=== PATIENT | male | born 1955 | race Caucasian/White ===

== ENCOUNTER 2022-11-18 08:00 | Outpatient (CLI) | payer MEDICARE, SELFPAY ==
--- NOTE | 2022-11-18 08:30 | ECG_ITS ---
Measurements Intervals [place] Rate: 62 P: 40 [place]: 147 QRS: 48 QRSD: 77 T: 42 QT: 398 QTc: 405 Interpretive Statements SINUS RHYTHM NO PREVIOUS ECG AVAILABLE FOR COMPARISON Electronically Signed On 11-18-2022 11:46:25 CDT by Patrick Dykes M.D.
[2022-11-18 09:09] LABS: Anion Gap 5 mmol/L (8-16); Blood Urea Nitrogen 18 mg/dL (9-20); Calcium 8.9 mg/dL (8.4-10.2); Carbon Dioxide 29 mmol/L (22-30); Chloride 105 mmol/L (98-107); Estimated Glomerular Filt Rate > 60; Glucose 122 mg/dL (65-110); Potassium 3.5 mmol/L (3.4-5.0); Sodium 139 mmol/L (137-145)
== END 2022-11-18 08:01 | disposition home or self-care (01) ==
PROVIDERS: Anesthesiology; PCP Family Medicine; Visit Provider Orthopaedic Surgery
DX: Z01.818 Encounter for other preprocedural examination (principal); I10 Essential (primary) hypertension
CPT/HCPCS: 36415; 80048; 93005

== ENCOUNTER 2022-11-22 00:39 | Day surgery (SDC) | payer MEDICARE, SELFPAY ==
[2022-11-15 13:31] VITALS: BMI 34.7
--- NOTE | 2022-11-15 14:37 | PC.NURSE ---
Report to the Outpatient Waiting Room, entrance under the green pavilion located off [facility], at time __0800 on date __11/22/22 . Planned Procedure Time: _1000 . Time changes happen often and if your time is changed the preop area will call you the afternoon before. - You and your visitor will be asked to self-screen and do not enter if you have any COVID symptoms. - A mask is optional within the hospital at this time. Patients may have clear liquids (water, carbonated beverages, clear teas, apple juice) until 3 hours prior to surgery with a maximum of 20 ounces. - No food from midnight until time of surgery - Infants may have breast milk until 4 hours before surgery, formula 6 hours prior to surgery. - Children will be allowed to drink immediately following surgery. If applicable, please bring a bottle or sippy cup to assist with drinking. Juice, water, soda, and popsicles are readily available. For infants on formula, please bring formula the day of surgery. Pacifiers are allowed. Take the following medications with a SIP of water the morning of surgery: ____METOPROLOL DO NOT STOP ANY OF YOUR OTHER PRESCRIPTION MEDICATIONS PRIOR TO SURGERY ?EXCEPT THE FOLLOWING Medications to discontinue per physician ___NONE Date to take last dose Please no make-up, nail american, hairspray, perfume, deodorant, or body powder the day of surgery. No jewelry (including any body piercings) or valuables the day of surgery, leave them at home. Please take a shower or bath the night before, or the morning of, surgery with an antibacterial soap. Wear comfortable, loose fitting clothing. Children are encouraged to wear pajamas. - Jewelry must be removed prior to entering the operating room. Rings and piercings that are not removed may be cut off. - The hospital will not accept responsibility for valuables. - Please leave all valuables, including medications, at home the day of surgery. If you are going home after surgery, a licensed driver lifter of sanitation truck must drive you home. - NO public transportation without another adult if you receive anesthesia. - We recommend that an adult stay with you for 24 hours following discharge. - We also recommend that you do not drive, make important decision, drink alcoholic beverages, or take any drugs that were not prescribed by your health care provider for at least 24 hours after your discharge time. For Pediatric surgeries, we recommend two adults accompany the child home. Follow any additional instructions given to you from your surgeon. If you or anyone in your household have experienced Covid symptoms in the past week, please notify your surgeon or the nurse liaison at the phone number below for possible testing. Telephone instructions given to __PATIENT and asked if any additional questions and then verbalized understanding. Patient advised to call surgeon office or pre surgery nurse liaison [phone] if any additional questions.
[2022-11-22] VITALS (7 sets, daily range): BP systolic 100–149; BP diastolic 63–97; PULSE 64–77; RESP 16–18; TEMP 36.3–36.5; O2SAT 93–98
--- NOTE | 2022-11-22 07:43 | WPDANESEPPF ---
Anes - Initial Pre Proc Eval Procedure: Operation Date: 11/22/22 11:30 Proposed Procedures p Right Olecranon Bursectomy - Lake Daily MD Date/Time: 11/22/22 07:43 Surgeon: Lake Daily MD Pre Op Diagnosis: Right Olecranon Bursitis Patient Data Age: 67 Gender: M Height: 1.75 m Weight: 106.65 kg Allergies Allergy/AdvReac Type Severity Reaction Status Date / Time No Known Allergies Allergy Verified 11/22/22 09:41 Home Medications Medication Instructions Recorded Confirmed Type atorvastatin 40 mg tablet 40 mg PO DAILY 10/19/22 11/18/22 History lisinopril 20 1 tablet PO DAILY 10/19/22 11/18/22 History mg-hydrochlorothiazide 25 mg tablet metoprolol tartrate 25 mg tablet 25 mg PO DAILY 11/15/22 11/18/22 History Patient hx anesthesia problems: none Family hx anesthesia problems: none Results Review: All pre-operative results and documents have been reviewed as part of the pre-operative evaluation. [facility] Past Medical History Medical History (Updated 11/22/22 @ 07:43 by Matias Santos DO) Hyperlipidemia Hypertension Olecranon bursitis, right elbow Osteoarthritis of left knee Surgical History Surgical History History of left knee surgery torn meniscus History of lithotripsy History of nasal surgery nasal fx Olecranon bursitis, left elbow Wells - bursectomy with spur removal. Had delayed triceps rupture. Family History Family History Father Hypertension Cerebrovascular accident Social History Social History Smoking status: Never smoker Alcohol intake: never Substance use: never Lack of Transportation: No Lack of Food: Never True Current Housing: I Have Housing Concerned About Future Housing: No Difficulty Paying Gas/Electric Bills: No Difficulty Paying for Meds: No Currently Unemployed: No Education: Associate Degree Difficulty w/ Childcare or Family Care: No Living arrangements: with family Occupation/Education: retired Spiritual care concerns: No Anes - Eval Final PreProcedure Day of Procedure 07/03/23 07:43 Patient weight: obese Heart: regular rate and rhythm Lungs: clear to auscultation Airway: Mallampati scale class II Neurological: alert and oriented Last oral intake: >/= 8 hours ASA classification: III Emergent: no Anesthetic plan: proceed Anesthesia type and monitoring: general LMA and standard monitoring Results Review: All pre-operative results and documents have been reviewed as part of the pre-operative evaluation. Informed Consent: The patient's anesthetic plan and its attendant risks and benefits were discussed with the patient/family/POA. Questions were solicited and answers provided to the satisfaction of the patient/family/POA.
[2022-11-22] MEDS: ACETAMINOPHEN 500 MG TABLET 1000 MG PO (09:42)
[2022-11-22] MEDS: KETOROLAC 15 MG/ML VIAL (*BKC) IV PUSH (10:06)
--- NOTE | 2022-11-22 10:17 | WPDHPUPDATE1 ---
History and Physical Update Update Date/Time: 11/22/22 10:17 History and Physical has been reviewed, including an updated exam of the patient. There are NO changes in the patient's condition. Risks, benefits, and alternatives have been discussed and questions answered. Patient agrees to proceed with procedure.
[2022-11-22] MEDS: ceFAZolin 2 GM/D5W 50 ML 2 GM/50 ML BAG IVPB (10:24)
[2022-11-22] MEDS: BUPIVACAINE/EPINEPHRINE 0.25% 50 ML VIAL 30 ML INFILTRATE (11:05)
[2022-11-22] MEDS: LACTATED RINGERS 1,000 ML 30 ML IV CONT (11:49)
--- NOTE | 2022-11-22 11:55 | P.OP_ITS ---
Procedure Note - Detailed Date of Procedure 11/22/22 Pre-op Diagnosis chronic Right Olecranon Bursitis Post-op Diagnosis Same Procedure Performed right olecranon bursectomy Surgeon Lake Daily MD Hard Tile Setter Apprentice Sonny Fox Anesthesia General Description of Procedure The patient was identified and proper site identified. He was taken to the operating room and transferred to the OR table. After general anesthetic induction and intubation he was put into the left lateral decubitus position taking care to properly pad and position his torso and extremities. Right upper extremity nonsterile her a placed high and the arm. Was then prepped and draped in usual sterile fashion. The extremity was exsanguinated and tourniquet was inflated to 300 millimeters of mercury remaining up for about 45 minutes. An elliptical incision was made over the olecranon bursa to remove some of the redundant skin. The bursa was carefully dissected free and off of the tip of the olecranon. There is abundance of chalky white material that looked like gout crystals in the soft tissues surrounding the bursa as well as along the olecranon spur. The spur was cleared of debris but was not removed. The wound was irrigated with a copious amount of sterile saline. Skin edges reapproximated first with 3-0 Monocryl then with two 0 V lock subcuticular stitch and 3-0 nylon horizontal mattress sutures. Sterile dressing was applied and the tourniquet was released. He tolerated the procedure well. He was awakened, extubated and taken recovery in stable condition. There were no known intraoperative complications. Estimated blood loss 5 milliliters. He received perioperative antibiotics. Estimated Blood Loss 5 Tourniquet Time 45 Drains No Packing No Pathology Yes ( Right olecranon bursa) Complications No immediate complications Condition Stable Disposition PACU [facility] Billing Surgery - Charge Forward: Surgery Billing ([id number])
== END 2022-11-22 13:30 | disposition home or self-care (01) ==
PROVIDERS: PCP Family Medicine; Visit Provider Orthopaedic Surgery
PROC: (CPT 24110; principal; 2022-11-22 11:30)
DX: M70.21 Olecranon bursitis, right elbow (principal); I10 Essential (primary) hypertension; E78.5 Hyperlipidemia, unspecified; E66.9 Obesity, unspecified; Z68.36 Body mass index [BMI] 36.0-36.9, adult
CPT/HCPCS: 24105; 88304; A4565; A9270; J0330; J0690; J1100; J1885; J2250; J2371; J2405; J2704; J3010; J7120

== ENCOUNTER 2023-03-15 07:54 | Outpatient (CLI) | payer MEDICARE, SELFPAY ==
[2023-03-15 08:55] LABS: Basophils Percent Auto 0.7 % (0.2-1.2); Eosinophils Absolute Auto 0.2 K/mm3 (0-0.3); Eosinophils Percent Auto 3.2 % (0-4.4); Hematocrit 46.2 % (42.0-52.0); Hemoglobin 15.5 g/dL (14.0-18.0); Immature Granulocyte Absolute 0.02 K/mm3 (0.00-0.031); Immature Granulocyte Percent A 0.4 % (0-0.5); Lymphocytes Absolute Auto 1.33 K/mm3 (0.9-3.2); Lymphocytes Percent Auto 24.8 % (18.3-44.2); Mean Corpuscular HGB Conc 33.5 g/dl (32-36); Mean Corpuscular Hemoglobin 31.4 pg (26-34); Mean Corpuscular Volume 93.7 fl (80-100); Mean Platelet Volume 8.5 fl (7.4-10.4); Monocytes Absolute Auto 0.4 K/mm3 (0.1-0.6); Monocytes Percent Auto 7.6 % (2.6-8.5); Neutrophils Absolute Auto 3.4 K/mm3 (1.3-6.7); Neutrophils Percent Auto 63.3 % (45.5-73.1); Platelet Count Result 231 k/mm3 (150-375); Red Blood Count 4.93 M/mm3 (4.6-6.20); Red Cell Distribution Width 15.3 % (11.5-14.5); White Blood Count 5.4 K/mm3 (4.5-10.0)
[2023-03-15 09:08] LABS: Albumin Level 4.4 g/dL (3.5-5.1)
[2023-03-15 09:12] LABS: Anion Gap 6 mmol/L (8-16); Blood Urea Nitrogen 20 mg/dL (9-20); Calcium 9.4 mg/dL (8.4-10.2); Carbon Dioxide 31 mmol/L (22-30); Chloride 102 mmol/L (98-107); Estimated Glomerular Filt Rate > 60; Glucose 127 mg/dL (65-110); Potassium 3.5 mmol/L (3.4-5.0); Sodium 139 mmol/L (137-145)
[2023-03-15 09:41] LABS: Urine Cotinine NEGATIVE
[2023-03-15 10:13] LABS: Hemoglobin A1C 5.5 % (<5.7)
== END 2023-03-15 07:55 | disposition home or self-care (01) ==
LOC: ANHSURGERY 07:57
PROVIDERS: Anesthesiology; PCP Family Medicine; Visit Provider Orthopaedic Surgery
DX: Z01.818 Encounter for other preprocedural examination (principal); M17.12 Unilateral primary osteoarthritis, left knee; Z79.899 Other long term (current) drug therapy
CPT/HCPCS: 36415; 80048; 80307; 82040; 83036; 85025; 87081

== ENCOUNTER 2023-04-04 01:30 | Day surgery (SDC) | payer MEDICARE, SELFPAY ==
--- NOTE | 2023-03-15 07:40 | PC.NURSE ---
PRE-OP INSTRUCTIONS, PLEASE READ CAREFULLY Report to the Outpatient Waiting Room, entrance under the green pavilion located off [facility], at time _0600_ on date _04/04/23_. Planned Procedure Time: _0730_. PACK A SMALL OVERNIGHT BAG AND LEAVE IN THE CAR ALONG WITH YOUR WALKER Time changes happen often and if your time is changed the preop area will call you the afternoon before. - You and your visitor will be asked to self-screen and do not enter if you have any COVID symptoms. - A mask is optional within the hospital at this time. -VISITING HOURS 8AM-8PM Patients may have clear liquids (water, carbonated beverages, clear teas, apple juice) until 3 hours prior to surgery (0430 AM) with a maximum of 20 ounces. - No food from midnight until time of surgery Take the following medications with a SIP of water the morning of surgery: _METOPROLOL_ DO NOT STOP ANY OF YOUR OTHER PRESCRIPTION MEDICATIONS PRIOR TO SURGERY ?EXCEPT THE FOLLOWING Medications to discontinue per physician __NONE__, Date to take last dose Please no make-up, nail portuguese, hairspray, perfume, deodorant, or body powder the day of surgery. No jewelry (including any body piercings) or valuables the day of surgery, leave them at home. Please take a shower or bath the night before, or the morning of, surgery with an antibacterial soap. Wear comfortable, loose fitting clothing. - Jewelry must be removed prior to entering the operating room. Rings and piercings that are not removed may be cut off. - The hospital will not accept responsibility for valuables. - Please leave all valuables, including medications, at home the day of surgery. If you are going home after surgery, a licensed motor driver must drive you home. - NO public transportation without another adult if you receive anesthesia. - We recommend that an adult stay with you for 24 hours following discharge. - We also recommend that you do not drive, make important decision, drink alcoholic beverages, or take any drugs that were not prescribed by your health care provider for at least 24 hours after your discharge time. Follow any additional instructions given to you from your surgeon. If you or anyone in your household have experienced Covid symptoms in the past week, please notify your surgeon or the nurse liaison at the phone number below for possible testing. Instructions given to _PATIENT_and asked if any additional questions and then verbalized understanding. Patient advised to call surgeon office or pre surgery nurse liaison [phone] if any additional questions.
[2023-03-15 08:09] VITALS: BP 120/80; PULSE 68; RESP 20; TEMP 36.4; O2SAT 96; BMI 36.1
[2023-04-04] VITALS (13 sets, daily range): BP systolic 111–135; BP diastolic 67–88; PULSE 77–99; RESP 12–20; TEMP 36.1–37.2; O2SAT 90–98
--- NOTE | ~2023-04-04 | XR_ITS ---
EXAMINATION: [id number] DATE: 04/04/2023 10:29 INDICATION: Left knee arthroplasty. Postop. TECHNIQUE: 2 views of left knee were obtained. COMPARISON: Left knee radiographs 03/24/2023 FINDINGS: There is a total left knee arthroplasty with patellar resurfacing in near-anatomic alignmen t. No fracture. There is gas in the knee joint and soft tissues, consistent with recent surgery. IMPRESSION: 1. Total left knee arthroplasty in near-anatomic alignment. Reviewed, dictated and finalized at location A. [facility] SPECIAL[facility]
[2023-04-04] MEDS: ACETAMINOPHEN 500 MG TABLET 1000 MG PO (06:30)
[2023-04-04] MEDS: LACTATED RINGERS 1,000 ML 30 ML IV CONT ×2 (06:35→10:07)
--- NOTE | 2023-04-04 07:02 | WPDANESEPPF ---
Anes - Initial Pre Proc Eval Procedure: Operation Date: 04/04/23 07:30 Proposed Procedures p Left Total Knee Arthroplasty - Lake Daily MD Date/Time: 04/04/23 07:02 Surgeon: Lake Daily MD Pre Op Diagnosis: OA left knee Patient Data Age: 67 Gender: M Height: 1.75 m Weight: 112 kg Last Vital Signs Temp 36.2 C L 04/04/23 06:54 Pulse 83 04/04/23 06:54 Resp 20 04/04/23 06:54 BP 118/75 04/04/23 06:54 Pulse Ox 94 04/04/23 06:54 O2 Del Method Room Air 04/04/23 06:54 Allergies Allergy/AdvReac Type Severity Reaction Status Date / Time No Known Allergies Allergy Verified 04/04/23 06:17 Home Medications Medication Instructions Recorded Confirmed Type atorvastatin 40 mg tablet 40 mg PO DAILY 10/19/22 04/04/23 History lisinopril 20 1 tablet PO DAILY 10/19/22 04/04/23 History mg-hydrochlorothiazide 25 mg tablet metoprolol tartrate 25 mg tablet 25 mg PO DAILY 11/15/22 04/04/23 History allopurinol 300 mg tablet 300 mg DAILY 03/15/23 04/04/23 History rivaroxaban 10 mg tablet (Xarelto) 10 mg PO DAILY PE prophylaxis s/p 03/24/23 03/24/23 Rx surgery 14 days #14 tabs Laboratory Tests 04/04/23 06:33 Blood Type Pending Antibody Screen Pending Patient hx anesthesia problems: none Family hx anesthesia problems: none Results Review: All pre-operative results and documents have been reviewed as part of the pre-operative evaluation. [facility] Past Medical History Medical History (Updated 04/04/23 @ 07:03 by Gianni Sahu MD) CAD (coronary artery disease) Hyperlipidemia Hypertension Osteoarthritis of left knee Surgical History Surgical History (Updated 04/04/23 @ 07:03 by Gianni Sahu MD) History of coronary artery stent placement History of left knee surgery torn meniscus History of lithotripsy History of nasal surgery nasal fx Olecranon bursitis, left elbow Wells - bursectomy with spur removal. Had delayed triceps rupture. Olecranon bursitis, right elbow Right olecranon bursectomy November 22, 2022 Family History Family History Father Hypertension Cerebrovascular accident Social History Social History Smoking status: Never smoker Second hand tobacco smoke exposure: No Additional smoking assessment comments: PT DENIES ALL FORMS OF TOBACCO USE Alcohol intake: never Substance use: never Substance use type: does not use Current Housing: Decline to Answer Concerned About Future Housing: Decline to Answer Difficulty Paying Gas/Electric Bills: Decline to Answer Difficulty Paying for Meds: Decline to Answer Currently Unemployed: Decline to Answer Education: Decline to Answer Difficulty w/ Childcare or Family Care: Decline to Answer Living arrangements: with family Occupation/Education: retired Spiritual care concerns: No Anes - Eval Final PreProcedure Day of Procedure 04/04/23 07:02 Patient weight: obese Heart: regular rate and rhythm Lungs: clear to auscultation Airway: Mallampati scale class II Neurological: alert and oriented Last oral intake: >/= 8 hours ASA classification: III Emergent: no Anesthetic plan: proceed Anesthesia type and monitoring: general LMA and standard monitoring Results Review: All pre-operative results and documents have been reviewed as part of the pre-operative evaluation. Informed Consent: The patient's anesthetic plan and its attendant risks and benefits were discussed with the patient/family/POA. Questions were solicited and answers provided to the satisfaction of the patient/family/POA.
[2023-04-04] MEDS: TRANEXAMIC ACID 1,000MG/ISO100 1,000 MG/100 ML BAG 200 MG IVPB (07:06)
--- NOTE | 2023-04-04 07:11 | WPDHPUPDATE1 ---
History and Physical Update Update Date/Time: 04/04/23 07:11 History and Physical has been reviewed, including an updated exam of the patient. There are NO changes in the patient's condition. Risks, benefits, and alternatives have been discussed and questions answered. Patient agrees to proceed with procedure.
[2023-04-04] MEDS: ceFAZolin 2 GM/D5W 50 ML 2 GM/50 ML BAG IVPB ×2 (07:36→16:41)
--- NOTE | 2023-04-04 07:50 | WPDANESPNB ---
Anes - Peripheral Nerve Block Date/Time: 04/04/23 07:50 I have discussed with the patient/family/POA the placement of a peripheral nerve block for post-operative pain management, including associated risks, benefits, complications, and side effects. Alternative methods of post-operative analgesia were detailed. Questions were solicited and answers provided to the satisfaction of the patient/family/POA. Time-Out: A pre-procedural Time-Out was completed immediately before starting the procedure and confirmed: Patient Identification, Site, Procedure, Patient Position and the Availability of Requisite Equipment. Clinical Indications: Acute post-operative pain management requested by the operative surgeon. Nerve Block Insertion Note Anes-nerve block: adductor canal left Patient position: supine Skin prep: chlorhexidine Needle: 22 gauge, stimulating, insulated echogenic needle. Needle length: 50 mm Technique: ultrasound Injectate: bupivacaine 0.5% with epi 5 mcg/ml (30cc no epi ) and dexamethasone (mg) (8) Observations: tolerated well Complications: none Procedure start time:: 724 Procedure end time:: 728
[2023-04-04] MEDS: GENTAMICIN BONE CEMENT REFOBACIN 2 EACH TOPICAL (08:30)
[2023-04-04] MEDS: ceFAZolin SODIUM 1 GM VIAL IV PUSH (09:27)
--- NOTE | 2023-04-04 10:07 | P.OP_ITS ---
Procedure Note - Detailed Date of Procedure 04/04/23 Pre-op Diagnosis OA left knee Post-op Diagnosis Same Procedure Performed Left total knee replacement Surgeon Lake Daily MD Biomaterials Engineer Sonny Fox Anesthesia General and Regional Description of Procedure The patient was identified and proper site identified. In the preop holding area the anesthesia team performed a left sub sartorial block after which the patient was taken to the operating room and transferred to the OR table pos itioning supine taking care to pad the torso and extremities. After general anesthetic induction and intubation a nonsterile tourniquet was placed high on the left thigh. The left lower extremity was prepped and draped in the usual sterile fashion. The extremity was exsanguinated and with the knee flexed tourniquet was inflated to 300 mmHg remaining up for approximately 75 minutes. An anterior midline incision was made and a modified medial parapatellar approach was used. Infra and suprapatellar fat pads were excised. Patella was resected leaving 15 mm thickness and prepared for the size 32 round three peg component. Using the intramedullary guide the distal femur was cut in the proper orientation for the size eight femoral component. Using the extramedullary guide the tibia was cut perpendicular to the long axis protecting collateral ligaments and popliteal structures. It was sized to a eight. Flexion and extension gaps were balanced. Trial reduction was undertaken and the weight-bearing line was noted to passed through the center of the joint. Proximal tibia was drilled and punched in the proper orientation for the real component. Trial components were removed. The bone surfaces were washed with pulsatile lavage and dried. The real components were cemented simultaneously. The knee was held in extension and the patella held clamped until the cement had cured. Excess cement was removed from the joint. After trialing it was determined that the 10 mm insert gave full range of motion from 0-120 degrees of flexion and the patella tracked in the femoral groove with no lift-off. After final lavage the joint the real size 10 insert was secured. A Betadine and saline wash was placed into the wound and allowed to sit for approximately 3 minutes and then evacuated. Periarticular tissues were infiltrated with 60 cc of the arthroplasty solution. Surgicel powder was applied into the wound during the closure. The extensor mechanism was repaired with #2 Vicryl suture and 0 looped PDS suture. Subcu was reapproximated with 3-0 Monocryl, 0 Stratafix and tissue adhesive for the skin. A sterile dressing was applied. He tolerated the procedure well, was awakened and extubated, transferred to the bed and was taken to recovery area in stable condition. There were no known intraoperative complications. Perioperative antibiotics were administered. Estimated Blood Loss 150 Tourniquet Time 75 Drains No Packing No Pathology None sent Complications No immediate complications Condition Stable Disposition PACU [facility] Billing Surgery - Charge Forward: Surgery Billing ([id number])
[2023-04-04] MEDS: fentaNYL CITRATE INJ (*CRX) 100 MCG/2 ML VIAL 25 MCG IV PUSH ×4 (10:48→11:06)
--- NOTE | 2023-04-04 11:30 | ADMGEN ---
This patient, Ok Rios, was admitted to 2 Medical Room 256-. Patient/family oriented to hospital policies and general routines including ID bracelet, bed and alarms, visiting hours, pain management, procedures, bathroom and other care routines, personal items, smoking policy, room service/diet, and visiting hours. Information on how to activate the Rapid Response Team has been discussed. Patient/Family are encouraged to report perceived risks to care and to ask questions if they do not understand what they are told or what they should do.
[2023-04-04] MEDS: oxyCODONE/ACETAMINOPHEN (*CRX) 5-325 MG TABLET 1 TABLET PO ×3 (12:49→20:18)
[2023-04-04] MEDS: allopurinoL 300 MG TABLET BY MOUTH (12:49)
[2023-04-04] MEDS: SODIUM CHLORIDE 0.9% IV 1,000 ML 125 ML IV CONT (12:49)
[2023-04-04] MEDS: KETOROLAC 15 MG/ML VIAL (*BKC) IV PUSH ×2 (12:49→17:29)
--- NOTE | 2023-04-04 12:51 | WPDCN ---
Assessment and Plan Assessment and plan (1) Osteoarthritis of left knee: Qualifiers: Osteoarthritis type: unspecified Qualified Code(s): M17.12 - Unilateral primary osteoarthritis, left knee Code(s): M17.12 - Unilateral primary osteoarthritis, left knee Status: Chronic Assessment and Plan: Postoperative day 0 status post left total knee replacement. Wound care, pain control, DVT prophylaxis deferred to Dr. Daily. Check baseline labs in a.m. PT/OT consulted. (2) Hypertension: Code(s): I10 - Essential (primary) hypertension Status: Acute Assessment and Plan: Blood pressures were reviewed and they have been stable postoperatively. Continue lisinopril 20 mg, hydrochlorothiazide 25 mg, metoprolol 25 mg daily. (3) Hyperlipidemia: Code(s): E78.5 - Hyperlipidemia, unspecified Status: Acute Assessment and Plan: Continue atorvastatin. Check LFTs in a.m. (4) Coronary artery disease: Code(s): I25.10 - Atherosclerotic heart disease of [place] coronary artery without angina pectoris Status: Acute Assessment and Plan: No acute issues or recent concerns. Saw caustic operator prior to surgery for clearance. Plan Thank you for allowing us to participate in this patient's care. Please do not hesitate to contact us with any questions. HPI Data of Consult Date/Time: 04/04/23 12:51 Requesting Physician: Lake Daily MD Consult Narrative Reason for consult: Medical management. Narrative: This is a pleasant 67-year-old male with hypertension, hyperlipidemia, coronary artery disease with history of status, gout, and osteoarthritis whom the hospitalist service has been consulted for help managing his medical conditions postoperatively. He has had longstanding pain in his left knee which is not been amenable to conservative outpatient treatment and he elected for replacement today. His surgery was performed under general and regional anesthesia with no immediate complications documented an estimated blood loss of 150 mL. Postoperatively he is doing remarkable well. He has minimal discomfort and rates his pain at 1.5/10. He was up with PT when I entered the room and he did multiple laps without any issues whatsoever. He denies lightheadedness, dizziness, fever, chills, sweats, chest pain, shortness of breath, nausea, and vomiting. Regarding his chronic medical conditions, he believes his hypertension and hyperlipidemia are well controlled on his home medication. He saw his caustic operator last week and was given the okay for surgery. He had a stent placed 10 years ago and he has not had any issues with exertional chest pain and shortness of breath. He denies personal and family history of venous thromboembolism. Review of Systems Review of Systems: Twelve systems were reviewed and are negative except for as per HPI. PENDING SALE TO [facility] Past Medical History Medical History (Updated 04/04/23 @ 12:56 by Aundrea Mendes PA-C) Coronary artery disease Hyperlipidemia Hypertension Kidney stones Osteoarthritis of left knee Surgical History Surgical History (Updated 04/04/23 @ 12:55 by Aundrea Mendes PA-C) History of arthroscopy of left knee Torn meniscus. History of bursectomy (11/22/22) Bilateral. Right olecranon bursectomy with spur removal done at [place]. Had delayed triceps rupture. History of coronary artery stent placement History of lithotripsy History of lithotripsy History of nasal surgery nasal fx Family History Family History Father Hypertension Cerebrovascular accident Social History Social History (Updated 04/04/23 @ 12:55 by Aundrea Mendes PA-C) Social History: Surrogate medical decision maker: Anupama Rios, spouse. Code status: Full code. Smoking status: Never smoker Second hand tobacco smoke exposure: No Additional smoking assessment comments: PT
[2023-04-04] MEDS: SENNA/DOCUSATE SODIUM TABLET 2 TAB PO (16:41)
[2023-04-04] MEDS: RIVAROXABAN 10 MG TABLET PO (17:30)
[2023-04-05] MEDS: KETOROLAC 15 MG/ML VIAL (*BKC) IV PUSH ×2 (00:03→05:05)
[2023-04-05] MEDS: oxyCODONE/ACETAMINOPHEN (*CRX) 5-325 MG TABLET 1 TABLET PO ×3 (00:03→08:41)
[2023-04-05] MEDS: ceFAZolin 2 GM/D5W 50 ML 2 GM/50 ML BAG IVPB ×2 (00:04→08:42)
[2023-04-05 00:33] VITALS: BP 108/69; PULSE 92; RESP 20; TEMP 36.4; O2SAT 92
[2023-04-05 03:27] VITALS: BP 113/76; PULSE 91; RESP 20; TEMP 36.1; O2SAT 92
[2023-04-05 06:13] LABS: Hematocrit 38.6 % (42.0-52.0); Hemoglobin 13.1 g/dL (14.0-18.0); Mean Corpuscular HGB Conc 33.9 g/dl (32-36); Mean Corpuscular Hemoglobin 31.6 pg (26-34); Mean Platelet Volume 8.8 fl (7.4-10.4); Platelet Count Result 231 k/mm3 (150-375); Red Blood Count 4.15 M/mm3 (4.6-6.20); Red Cell Distribution Width 14.2 % (11.5-14.5); White Blood Count 17.7 K/mm3 (4.5-10.0)
[2023-04-05 06:24] LABS: Alanine Aminotransferase 24 U/L (6-50); Albumin Level 3.6 g/dL (3.5-5.1); Alkaline Phosphatase 79 U/L (38-126); Anion Gap 10 mmol/L (8-16); Aspartate Amino Transferase 30 U/L (17-59); Bilirubin,Total 0.9 mg/dL (0.2-1.3); Blood Urea Nitrogen 26 mg/dL (9-20); Calcium 8.5 mg/dL (8.4-10.2); Carbon Dioxide 23 mmol/L (22-30); Chloride 103 mmol/L (98-107); Estimated CRCL calculation 72 ml/min; Estimated Glomerular Filt Rate > 60; Glucose 143 mg/dL (65-110); Magnesium 1.5 mg/dL (1.6-2.3); Potassium 3.6 mmol/L (3.4-5.0); Sodium 136 mmol/L (137-145)
--- NOTE | 2023-04-05 08:07 | PM.DS ---
DS: Admitting Diagnosis Discharge Date April 05, 2023 Admitting Diagnosis osteoarthritis left knee DS: Discharge Diagnosis Discharge Diagnosis (1) History of total left knee replacement: Code(s): Z96.652 - Presence of left artificial knee joint Status: Resolved Plan Patient was admitted overnight for observation and pain control. Plan on being discharged home today. Follow-up will be in two weeks. Was instructed to read all the discharge information. DS: Summary Hospital Course Hospital Course: Following the patient's surgery he was admitted to the floor for observation and to begin therapy. Was seen by the hospitalist group. No medical issues overnight. Being discharged home on postop day one. Questions answered and instructions reviewed in detail. Time Spent with Patient Time attestation: Total time spent providing and/or coordinating discharge services: Exam Const: General: cooperative, no acute distress and alert HENMT: Head: normal to inspection Chest: Chest palpation & inspection: normal inspection of the chest Resp: Effort & Inspection: normal respiratory effort and able to speak in complete sentences GI: Inspection: other Neuro: General: patient oriented x3 Cognition (Neuro): normal cognition Speech: normal speech Extrem: Other: Exam of Left knee shows mild bruising, mild swelling, dry incision with intact neurovascular status. Essentially unremarkable appearance of left knee postop day one. Psych: Appearance: grossly normal Mental Status: mental status grossly normal Radiology Reports: Comments: EXAMINATION: [id number] DATE: 04/04/2023 10:29 INDICATION: Left knee arthroplasty. Postop. TECHNIQUE: 2 views of left knee were obtained. COMPARISON: Left knee radiographs 03/24/2023 FINDINGS: There is a total left knee arthroplasty with patellar resurfacing in near-anatomic alignment. No fracture. There is gas in the knee joint and soft tissues, consistent with recent surgery. IMPRESSION: 1. Total left knee arthroplasty in near-anatomic alignment. Reviewed, dictated and finalized at location A. [employer] DS: Data Data Completed and Pending Labs on day of discharge: Labs from last 24 hours 04/05/23 05:52 WBC 17.7 H RBC 4.15 L Hgb 13.1 L Hct 38.6 L MCV 93.0 MCH 31.6 MCHC 33.9 RDW 14.2 Plt Count 231 MPV 8.8 Sodium 136 L Potassium 3.6 Chloride 103 Carbon Dioxide 23 Anion Gap 10 BUN 26 H Creatinine 1.10 Estim Creat Clear Calc 72 Estimated GFR > 60 Glucose 143 H Calcium 8.5 Magnesium 1.5 L Total Bilirubin 0.9 AST 30 ALT 24 Alkaline Phosphatase 79 Total Protein 6.0 L Albumin 3.6 Discharge Plan Discharge Patient Disposition: Home, Self-Care Discharge Instructions: 3 times daily for 20 minutes each time, reclining in bed with ice packs over the incision and a pillow underneath the calf of the affected leg, not under the knee. Your wound is glued so it is okay to remove the dressing, get into the shower and get the wound wet in two days. Be sure to read through all the information that came from a my office and the hospital. Most of the answers you will need can be found that material. Call the office with any questions that you cannot find answers to, or concerns you may have. After the Xarelto is completed, start taking one coated 325 mg aspirin daily and do this for four more weeks. Please call [facility] at as soon as possible to arrange for/verify your follow-up appointment to be seen in 2 weeks. Also, call the office with any orthopedic/surgical related questions prior to follow-up. Be sure to get up and move around several times daily but do not overdo it. Take the arthritis formula Tylenol 650 mg tablet on an 8 hour schedule. A good 8 hour schedule is:
[2023-04-05 08:40] VITALS: BP 135/99; PULSE 101
[2023-04-05] MEDS: lisinopriL 20 MG TABLET PO (08:41)
[2023-04-05] MEDS: hydroCHLOROthiazide 25 MG TABLET PO (08:41)
[2023-04-05 08:42] VITALS: PULSE 101
[2023-04-05] MEDS: SENNA/DOCUSATE SODIUM TABLET 2 TAB PO (08:42)
[2023-04-05] MEDS: METOPROLOL TARTRATE 25 MG TABLET PO (08:42)
[2023-04-05] MEDS: ATORVASTATIN 40 MG TABLET PO (08:42)
[2023-04-05] MEDS: polyethylene glycoL 3350 17 GM POWD.PACK PO (08:42)
[2023-04-05] MEDS: allopurinoL 300 MG TABLET BY MOUTH (08:42)
[2023-04-05] MEDS: MAGNESIUM SULFATE 3GM/D5W100ML 3 GM/100 ML BAG IVPB (09:22)
--- NOTE | 2023-04-05 11:18 | PM.IMPN ---
Progress Note: A&P Assessment and Plan (1) Osteoarthritis of left knee: Qualifiers: Osteoarthritis type: unspecified Qualified Code(s): M17.12 - Unilateral primary osteoarthritis, left knee Code(s): M17.12 - Unilateral primary osteoarthritis, left knee Status: Resolved Assessment and Plan: Postoperative day 1 status post left total knee replacement. Wound care, pain control, DVT prophylaxis deferred to Dr. Daily. PT/OT consulted. (2) Hypertension: Code(s): I10 - Essential (primary) hypertension Status: Acute Assessment and Plan: Blood pressures were reviewed and they have been stable postoperatively. Continue lisinopril 20 mg, hydrochlorothiazide 25 mg, metoprolol 25 mg daily. (3) Hyperlipidemia: Code(s): E78.5 - Hyperlipidemia, unspecified Status: Acute Assessment and Plan: Continue atorvastatin. (4) Coronary artery disease: Code(s): I25.10 - Atherosclerotic heart disease of [place] coronary artery without angina pectoris Status: Acute Assessment and Plan: No acute issues or recent concerns. 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 Plan Thank you for allowing us to participate in this patient's care. Please do not hesitate to contact us with any questions. Subjective Date/time seen: 04/05/23 11:18 Interval history: Patient doing well and working with therapy. His pain is well controlled. Okay today discharge per hospitalist team. Exam Narrative: GENERAL: Comfortable, no acute distress HENMT: moist mucous membranes EYES: EOM intact b/l NECK: no lymphadenopathy RESPIRATORY: clear to auscultation CARDIO: RRR GI: soft, nontender, bowel sounds present SKIN: no rashes EXTREMITIES: Right knee Tegaderm dry and intact Objective Data Vital Signs Vital Signs: Vital Signs - 24 hr 04/04/23 11:20 04/04/23 11:40 04/04/23 11:55 Temperature 97.7 F 97.6 F Pulse Rate 80 82 78 Respiratory Rate 16 16 18 Blood Pressure 111/78 124/74 122/69 Pulse Oximetry 94 97 96 Oxygen Delivery Nasal Cannula Oxygen Flow Rate 3 04/04/23 12:25 04/04/23 13:29 04/04/23 13:25 Temperature 97.7 F 97.7 F Pulse Rate 77 81 Respiratory Rate 18 18 Blood Pressure 111/70 135/74 Pulse Oximetry 97 96 Oxygen Delivery Room Air Oxygen Flow Rate 04/04/23 18:40 04/04/23 19:36 04/05/23 00:33 Temperature 97.7 F 97.0 F L 97.6 F Pulse Rate 97 99 92 Respiratory Rate 18 20 20 Blood Pressure 122/76 111/67 108/69 Pulse Oximetry 92 90 92 Oxygen Delivery Oxygen Flow Rate 04/05/23 03:27 04/05/23 08:40 04/05/23 08:42 Temperature 97 F L Pulse Rate 91 101 H 101 H Respiratory Rate 20 Blood Pressure 113/76 135/99 H Pulse Oximetry 92 Oxygen Delivery Oxygen Flow Rate 04/05/23 08:00 Temperature Pulse Rate Respiratory Rate Blood Pressure Pulse Oximetry Oxygen Delivery Room Air Oxygen Flow Rate Intake/Output Intake/Output: Intake & Output 04/02/23 04/03/23 04/04/23 04/05/23 23:59 23:59 23:59 23:59 Intake Total 1110 580 Output Total 300 100 Balance 810 480 Meds/Results Radiology Results: ITS Impressions Knee X-Ray 04/04/23 11:16 IMPRESSION: 1. Total left knee arthroplasty in near-anatomic alignment. Labs Labs: Laboratory Results - last 24 hr 04/05/23 05:52 WBC 17.7 H RBC 4.15 L Hgb 13.1 L Hct 38.6 L MCV 93.0 MCH 31.6 MCHC 33.9 RDW 14.2 Plt Count 231 MPV 8.8 Sodium 136 L Potassium 3.6 Chloride 103 Carbon Dioxide 23 Anion Gap 10 BUN 26 H Creatinine 1.10 Estim Creat Clear Calc 72 Estimated GFR > 60 Glucose 143 H Calcium 8.5 Magnesium 1.5 L Total Bilirubin 0.9 AST 30 ALT 24 Alkaline Phosphatase 79 Total Protein 6.0 L Albumin 3.6
== END 2023-04-05 10:45 | disposition home or self-care (01) ==
LOC: ANHSURGERY 09:54 → ANH2MED 11:36
PROVIDERS: Physician Assistant; PCP Family Medicine; Visit Provider Orthopaedic Surgery
PROC: (CPT 27447; principal; 2023-04-04 07:30)
DX: M17.12 Unilateral primary osteoarthritis, left knee (principal); I10 Essential (primary) hypertension; E78.5 Hyperlipidemia, unspecified; I25.10 Atherosclerotic heart disease of native coronary artery without angina pectoris; G89.18 Other acute postprocedural pain; Z79.01 Long term (current) use of anticoagulants; Z86.79 Personal history of other diseases of the circulatory system; Z82.49 Family history of ischemic heart disease and other diseases of the circulatory system; Z98.890 Other specified postprocedural states; E66.9 Obesity, unspecified; Z68.37 Body mass index [BMI] 37.0-37.9, adult
CPT/HCPCS: 64447; 27447; 36415; 73560; 80048; 80053; 80307; 82040; 83036; 83735; 85025; 85027; 86850; 86900; 86901; 87081; 97110; 97161; 97165; 97535; A9270; C1713; J0171; J0690; J1100; J1170; J1885; J2250; J2270; J2371; J2405; J2704; J2795; J3010; J3475; J7030; J7120

== ENCOUNTER 2023-06-20 10:00 | Outpatient (RCR) | payer MEDICARE, SELFPAY ==
--- NOTE | 2023-04-11 08:55 | OPREHPOC ---
Outpatient Therapy Plan of Care This is a Multidisciplinary Plan of Care that may contain components documented by all disciplines (PT, OT, and ST.) PT Problem 1 PT Problem #1 Knowledge Deficit PT Goal 1 Goal Pt to be IND with issued HEP Target Visit 16 PT Problem 2 PT Problem #2 Pain PT Goal 1 Goal Pt to report knee pain no greater than 3/10 in the last week Target Visit 16 PT Goal 2 Goal Pt to report 75% improvement in overall symptoms. Target Visit 16 PT Problem 3 PT Problem #3 Edema PT Goal 1 Goal Pt to demonstrate circumferential measures within 1cm of R knee Target Visit 16 PT Problem 4 PT Problem #4 Impaired Gait PT Goal 1 Goal Pt to improve gait to equal knee flexion and equal step length Target Visit 16 PT Goal 2 Goal Pt to improve 2 min walk test to 375ft without AD Target Visit 16 PT Problem 5 PT Problem #5 Impaired Range of Motion PT Goal 1 Goal Pt to improve passive knee flexion to 120 deg Target Visit 16 PT Goal 2 Goal Pt to improve passive knee extension to 0 deg Target Visit 16
--- NOTE | 2023-04-11 08:55 | PTOPEVAL1 ---
Assessment and note entered by Tj Gutierrez, PT, DPT Evaluation Information Assessment Status Evaluation Diagnosis L TKA Onset 04/04/23 Subjective Information Pt states he had a L TKA on 04/04/23. He states his pain has been pretty well controlled. Pt states he has been non-compliant with his HEP since discharge. At baseline, he plays golf 2x/wk, likes to [place], likes to swim, and manages his own yardwork. Reported Pain Level Pain Score 0: Self Report Assessment PT Clinical Summary Ok presents to therapy today for his initial evaluation following a L TKA on 04/04/23. Today he demonstrates decreased strength, ROM, gait, and functional mobility consistent with his procedure. Today he currently demonstrates active knee ROM to 74 deg of flexion and lacking 10 deg of extension. Skilled therapy services are indicated to address the deficits noted above, to improve edema, to improve gait, and to return to PLOF. Plan of Care Interventions Electrical Stimulation,Gait Training,Hot Pack/Cold Pack,Intermittent Compression,Manual Therapy, Neuro Re-education,Patient/Caregiver Educati, Therapeutic Activities,Therapeutic Exercise PT Services Indicated Yes Treatment Frequency and 2x/wk for 16 visits Duration These treatments will address the objective and functional deficits as defined above. The patient will be advanced safely and appropriately in order for the patient to progress towards his/her prior level of function. Additional exercises will be introduced and as well as a comprehensive home exercise program upon discharge, if needed, ?to ensure carryover of functional gains achieved in the clinic. This treatment plan has been reviewed and agreement upon by the patient.
--- NOTE | 2023-05-09 08:54 | PTOPPROG ---
Assessment and note entered by Tj Gutierrez, PT, DPT Evaluation Information Assessment Status Progress Diagnosis L TKA Onset 04/04/23 Subjective Information Pt states its hard to feel like he is making any progress. Pt states his pain is well controlled during the day, he states he is only staying in bed for 1-2 hours in the night then has to go to the recliner. Assessment PT Clinical Summary Ok presents to therapy today for his progress report report following 9 visits of skilled therapy to treat the depicts related to a L TKA on 04/04/23. He is making progress as expected towards his therapy goals. Today he currently demonstrates active knee ROM to 100 deg of flexion and lacking 10 deg of extension. Continuation of skilled therapy services are indicated to address the deficits noted above, to improve edema, to improve gait, and to return to PLOF. Plan of Care Interventions Electrical Stimulation,Gait Training,Hot Pack/Cold Pack,Intermittent Compression,Manual Therapy, Neuro Re-education,Patient/Caregiver Educati, Therapeutic Activities,Therapeutic Exercise PT Services Indicated Yes Treatment Frequency and 2x/wk for 8 visits Duration These treatments will address the objective and functional deficits as defined above. The patient will be advanced safely and appropriately in order for the patient to progress towards his/her prior level of function. Additional exercises will be introduced and as well as a comprehensive home exercise program upon discharge, if needed, ?to ensure carryover of functional gains achieved in the clinic. This treatment plan has been reviewed and agreement upon by the patient.
--- NOTE | 2023-06-20 10:30 | PTOPDC ---
Assessment and note entered by Tj Gutierrez, PT, DPT Evaluation Information Assessment Status Discharge Diagnosis L TKA Onset 04/04/23 Subjective Information Pt states his knee is doing great. He has been able to sleep on his L side, get up from a low chair, walk without limitations, and no pain. Pt reports at least 95% improvement in his overall symptoms. Reported Pain Level Pain Score 0: Self Report Assessment PT Clinical Summary Ok presents to therapy today for his progress report report following 17 visits of skilled therapy to treat the deficits related to a L TKA on 04/04/23. He has met all of his therapy goals at this time and no longer requires skilled services at this time. He was education to continue a regular exercise program upon discharge . Plan of Care PT Services Indicated No
== END 2023-06-20 12:25 | disposition home or self-care (01) ==
LOC: ANHGOSHPT 10:00
PROVIDERS: PCP Family Medicine; Visit Provider Orthopaedic Surgery
DX: Z47.1 Aftercare following joint replacement surgery (principal); Z96.652 Presence of left artificial knee joint
CPT/HCPCS: 97014; 97110; 97140; 97161; 97530; G0283

== ENCOUNTER 2023-11-29 08:55 | Outpatient (CLI) | payer MEDICARE, SELFPAY ==
--- NOTE | ~2023-11-29 | CT_ITS ---
CT of the Abdomen and Pelvis: Indication: Hematuria Technique: 2.5 mm axial scans were obtained through the abdomen and pelvis prior to and following in travenous administration of 130 cc of Omnipaque 350. Dose reduction technique was used on this scan b y utilizing automated exposure control and iterative reconstruction technique. The dose-length produc t (DLP) was 2882.37 mGy-cm. Findings: Scans through the lung bases are unremarkable. The liver, spleen, pancreas, gallbladder, right adrenal gland, are within normal limits. 1.8 cm left adrenal adenoma present. Punctate nonobstructing left renal stone present. 3 mm nonobstructing right renal stone present. No ureteral stone or hydronephrosis on either side. Left renal cyst noted. No ev idence of aortic aneurysm. No lymphadenopathy. No bowel obstruction or bowel wall thickening. There is no evidence to suggest acute appendicitis. Images through the pelvis were performed. 1.1 cm urinary bladder stone present. Prostate gland is mar kedly enlarged, and indents the bladder base. No ascites. Impression: Small bilateral nonobstructing renal stones, as detailed above. 1.1 cm urinary bladder stone. Markedly enlarged prostate gland. 1.8 cm left adrenal adenoma. Reviewed, dictated and finalized at location . Impression: Small bilateral nonobstructing renal stones, as detailed above. 1.1 cm urinary bladder stone. Markedly enlarged prostate gland. 1.8 cm left adrenal adenoma.
[2023-11-29 09:20] LABS: Estimated Glomerular Filt Rate > 60
== END 2023-11-29 08:56 | disposition home or self-care (01) ==
PROVIDERS: PCP Family Medicine
DX: R31.0 Gross hematuria (principal); N20.0 Calculus of kidney; N21.0 Calculus in bladder; N40.0 Benign prostatic hyperplasia without lower urinary tract symptoms; D35.02 Benign neoplasm of left adrenal gland
CPT/HCPCS: 74178; Q9967